=== PATIENT | male | born 1965 | race Caucasian/White ===

== ENCOUNTER 2017-08-20 09:46 | Emergency (ER) | payer MEDICAID ==
[~2017-08-20] VITALS: Ht 177.8 cm; Wt 105.8 kg
[~2017-08-20 09:46] MED LIST: CLIN300C8 PO; HYDR-882 PO
[2017-08-20 09:47] VITALS: BP 134/84
[2017-08-20] MEDS ORDERED: IBUPROFEN 200 MG TABLET PO ONE (10:30)
== END 2017-08-20 11:03 | disposition home or self-care (01) ==
LOC: ED 10:59
DX: S93.601A Unspecified sprain of right foot, initial encounter (principal); S93.401A Sprain of unspecified ligament of right ankle, initial encounter; X58.XXXA Exposure to other specified factors, initial encounter; Y93.89 Activity, other specified; Y92.410 Unspecified street and highway as the place of occurrence of the external cause; Y99.8 Other external cause status
CPT/HCPCS: 99284

== ENCOUNTER 2017-08-30 16:49 | Emergency (ER) | payer MEDICAID ==
[~2017-08-30] VITALS: Ht 175.3 cm; Wt 106.5 kg
[2017-08-30 18:12] LABS: BASOPHILS # (AUTO) 0.02 x10^3/uL (0-0.1); BASOPHILS % (AUTO) 0 % (0-1); EOSINOPHILS # (AUTO) 0.05 x10^3/uL (0-0.4); EOSINOPHILS % (AUTO) 1 % (1-7); LYMPHOCYTES # (AUTO) 1.81 x10^3/uL (1-3.4); LYMPHOCYTES % (AUTO) 25 % (22-44); MD NO; MEAN CORPUSCULAR HEMOGLOBIN 29.3 pg (27.5-34.5); MEAN CORPUSCULAR HGB CONC 33.1 g/dL (33.2-36.2); MEAN CORPUSCULAR VOLUME 88.4 fL (81-97); MONOCYTES # (AUTO) 0.57 x10^3/uL (0.2-0.8); MONOCYTES % (AUTO) 8 % (2-9); NEUTROPHILS # (AUTO) 4.82 x10^3/uL (1.8-6.8); NEUTROPHILS % (AUTO) 66 % (42-75); PLATELET COUNT 232 x10^3/uL (130-400); RED BLOOD COUNT 5.03 x10^6/uL (4.38-5.82); RED CELL DISTRIBUTION WIDTH 13.5 % (9.4-14.8)
[2017-08-30 18:19] LABS: INTERNATIONAL NORMALIZED RATIO 1.03 (0.93-1.1); PROTHROMBIN TIME 10.7 Seconds (9.6-11.5)
[2017-08-30 18:23] LABS: ALBUMIN 3.5 g/dL (3.4-5.0); ANION GAP 5 mmol/L (5-15); CALCIUM 8.4 mg/dL (8.5-10.1); CHLORIDE 109 mmol/L (98-107); CREATININE 1.09 mg/dL (0.7-1.3)
[2017-08-30] MEDS ORDERED: OMNIPAQUE 350 MG/ML, 100ML BOTTLE ONE (20:03)
[2017-08-30 20:49] VITALS: BP 133/79
== END 2017-08-30 20:51 | disposition home or self-care (01) ==
LOC: ED 18:13
DX: S06.0X9A Concussion with loss of consciousness of unspecified duration, initial encounter (principal); S30.1XXA Contusion of abdominal wall, initial encounter; S39.012A Strain of muscle, fascia and tendon of lower back, initial encounter; M54.2 Cervicalgia; K44.9 Diaphragmatic hernia without obstruction or gangrene; W01.0XXA Fall on same level from slipping, tripping and stumbling without subsequent striking against object, initial encounter; Y93.89 Activity, other specified; Y92.69 Other specified industrial and construction area as the place of occurrence of the external cause; Y99.0 Civilian activity done for income or pay
CPT/HCPCS: 36415; 70450; 72110; 72125; 74177; 80048; 82040; 85025; 85610; 99285; Q9967

== ENCOUNTER 2018-11-21 12:59 | Emergency (ER) | payer SELFPAY ==
[~2018-11-21] VITALS: Ht 177.8 cm; Wt 108.6 kg
[~2018-11-21 12:59] MED LIST changes: +HYDR-3653 PO; -HYDR-882 PO
[2018-11-21 13:04] VITALS: BP 149/92
--- NOTE | 2018-11-21 14:58 | NUR ---
Patient/Caregiver given discharge instructions and they have confirmed that they understand the instructions. Patient ambulatory with steady gait.
== END 2018-11-21 14:59 | disposition home or self-care (01) ==
LOC: ED 14:38
DX: S76.912A Strain of unspecified muscles, fascia and tendons at thigh level, left thigh, initial encounter (principal); Z88.0 Allergy status to penicillin; X58.XXXA Exposure to other specified factors, initial encounter; Y93.89 Activity, other specified; Y92.89 Other specified places as the place of occurrence of the external cause; Y99.8 Other external cause status
CPT/HCPCS: 99283